=== PATIENT | male | born 1950 | race Two or more races ===

== ENCOUNTER 2023-08-08 17:03 | Inpatient (IN) | payer OTHER ==
[2023-08-08] VITALS (9 sets, daily range): BP systolic 128–142; BP diastolic 76–83; PULSE 48–61; RESP 10–18; TEMP 97.4; O2SAT 95–98
[~2023-08-08] VITALS: Ht 177.8 cm; Wt 94.5 kg
[2023-08-08] MEDS: HEPARIN SODIUM (PORCINE) 5000 UNITS/ML 1ML VIAL IV ONE (17:30)
[2023-08-08] MEDS: HEPARIN SODIUM (PORCINE) 5000 UNITS/ML 1ML VIAL ONE (17:34)
[2023-08-08] MEDS: VERAPAMIL 2.5MG/ML INJ 2ML VIAL IV ONE (17:34)
[2023-08-08] MEDS: ANGIOMAX 250 MG VIAL IV ONE (17:34)
[2023-08-08] MEDS: SODIUM CHL 0.9% 50 ML ONE (17:35)
[2023-08-08] MEDS: LIDOCAINE 2%HCL (LOCAL ANESTH.) INJ 20ML MDV ONE (17:35)
[2023-08-08] MEDS: fentaNYL CITRATE 100 MCG/2 ML VL ONE (17:35)
[2023-08-08] MEDS: IODIXANOL 320MG/ML 100ML BTL IV ONE (17:35)
[2023-08-08] MEDS: MIDAZOLAM HCL 2MG/2ML 2ml VIAL (1mg/ml) ONE (17:35)
[2023-08-08] MEDS ORDERED: NITROGLYCERIN 0.4 MG SL TAB SL PRN ×2 (17:45→19:00)
[2023-08-08] MEDS ORDERED: MORPHINE SULFATE INJ 2 MG/ml SYRG IV PRN ×2 (17:45→19:00)
[2023-08-08] MEDS ORDERED: ONDANSETRON HCL 4 MG/2 ML VIAL IV PRN (17:45)
[2023-08-08] MEDS ORDERED: DOCUSATE SOD 100 MG CAP PO PRN (17:45)
[2023-08-08 17:59] LABS: Basophils # (auto) 0.1 10 ^3/uL (0-0.2); Basophils % (auto) 0.5 % (0.0-2.0); Eosinophils # (auto) 0.1 10 ^3/uL (0-0.8); Eosinophils % (auto) 1.3 % (0.0-7.0); Hematocrit 47.3 % (41.0-53.0); Hemoglobin 15.9 g/dL (13.5-17.5); Lymphocytes # (auto) 1.8 10 ^3/uL (0.4-5.4); Mean Corpuscular Hemoglobin 29.1 pg (28.0-32.0); Mean Corpuscular Hgb Conc. 33.6 g/dL (32.0-36.0); Mean Corpuscular Volume 86.4 fL (80.0-100.0); Monocytes # (auto) 0.8 10 ^3/uL (0-1.3); Monocytes % (auto) 7.2 % (0.0-12.0); Neutrophils # (auto) 8.3 10 ^3/uL (1.6-8.6); Nucleated Red Blood Cells % 0.2 %; Red Blood Cells 5.48 10^6/uL (4.5-5.90); White Blood Cell 11.1 10^3/uL (4.4-10.8)
[2023-08-08 18:15] LABS: Alanine Aminotransferase 58 U/L (7-40); Albumin 4.7 g/dL (3.2-4.8); Alkaline Phosphatase 100 U/L (46-116); Anion Gap 7 (5-15); Aspartate Aminotransferase 36 U/L (13-40); BUN/Creatinine Ratio 17.5 (10.0-20.0); Blood Urea Nitrogen 21 mg/dL (9-23); Calcium 9.8 mg/dL (8.5-10.1); Carbon Dioxide 22 mmol/L (20-30); Chloride 111 mmol/L (98-107); Cholesterol 177 mg/dL (< 200); Glucose 111 mg/dL (74-106); LDL Cholesterol 123 mg/dL (< 100); Magnesium 1.9 mg/dL (1.6-2.6); Potassium 4.5 mmol/L (3.5-5.1); Sodium 140 mmol/L (136-145); Triglycerides 206 mg/dL (< 150)
[2023-08-08 18:16] LABS: Bilirubin, Total 0.4 mg/dL (0.2-1.0); HDL Cholesterol 40 mg/dL (40-59); Total Protein 6.9 g/dL (5.7-8.2)
[2023-08-08 18:33] LABS: INR 1.01 (0.9-1.15); Partial Thromboplastin Time 26.9 SEC (24.5-34.5); Prothrombin Time 10.7 sec (9.3-11.8)
[2023-08-08] MEDS ORDERED: ZOLPIDEM TARTRATE 5 MG TAB PO PRN (19:00)
[2023-08-08] MEDS ORDERED: ACETAMINOPHEN 500 MG TAB PO PRN (19:00)
[2023-08-08] MEDS: ATORVASTATIN 20 MG TAB PO SCH (21:16)
[2023-08-08] MEDS: SODIUM CHLOR 0.9% PF (SALINE LOCK) 10ML VIAL/SYR IV SCH (21:17)
[2023-08-08] MEDS ORDERED: METO25TA93 PO (21:32)
[2023-08-08] MEDS ORDERED: ATOR40TA52 PO (21:32)
[2023-08-08] MEDS ORDERED: AMLO1TAB22 PO (21:32)
[2023-08-08] MEDS ORDERED: CLOP75TA70 PO (21:32)
[2023-08-08] MEDS ORDERED: ASPI-325 PO (21:32)
[2023-08-09 01:00] VITALS: BP 113/72; PULSE 59; RESP 18; TEMP 97.6; O2SAT 96
[2023-08-09 05:00] VITALS: BP 141/78; PULSE 51; RESP 18; TEMP 98.1; O2SAT 97
[2023-08-09 06:49] LABS: Basophils # (auto) 0.1 10 ^3/uL (0-0.2); Basophils % (auto) 0.9 % (0.0-2.0); Eosinophils # (auto) 0.3 10 ^3/uL (0-0.8); Eosinophils % (auto) 3.9 % (0.0-7.0); Hemoglobin 15.2 g/dL (13.5-17.5); Lymphocytes # (auto) 2.3 10 ^3/uL (0.4-5.4); Lymphocytes % (auto) 27.9 % (10.0-50.0); Mean Corpuscular Hemoglobin 29.4 pg (28.0-32.0); Mean Corpuscular Hgb Conc. 33.8 g/dL (32.0-36.0); Mean Corpuscular Volume 86.9 fL (80.0-100.0); Monocytes # (auto) 0.7 10 ^3/uL (0-1.3); Monocytes % (auto) 8.7 % (0.0-12.0); Neutrophils # (auto) 4.8 10 ^3/uL (1.6-8.6); Neutrophils % (auto) 58.6 % (37.0-80.0); Nucleated Red Blood Cells % 0.1 %; Red Blood Cells 5.19 10^6/uL (4.5-5.90); White Blood Cell 8.2 10^3/uL (4.4-10.8)
[2023-08-09 07:14] LABS: Alanine Aminotransferase 53 U/L (7-40); Albumin 4.1 g/dL (3.2-4.8); Alkaline Phosphatase 79 U/L (46-116); Anion Gap 8 (5-15); Aspartate Aminotransferase 58 U/L (13-40); BUN/Creatinine Ratio 17.5 (10.0-20.0); Bilirubin, Total 0.6 mg/dL (0.2-1.0); Blood Urea Nitrogen 18 mg/dL (9-23); Calcium 9.2 mg/dL (8.7-10.4); Carbon Dioxide 22 mmol/L (20-30); Chloride 111 mmol/L (98-107); Glucose 97 mg/dL (74-106); Potassium 4.2 mmol/L (3.5-5.1); Sodium 141 mmol/L (136-145); Total Protein 6.2 g/dL (5.7-8.2)
[2023-08-09 08:00] VITALS: PULSE 49
[2023-08-09 08:55] VITALS: BP 122/71; PULSE 55; RESP 18; TEMP 98.2; O2SAT 96
[2023-08-09] MEDS: PANTOPRAZOLE 40 MG/10 ML VIAL INJ IV SCH (09:25)
[2023-08-09] MEDS: METOPROLOL SUCCINATE XL 50 MG TAB PO SCH (09:28)
[2023-08-09] MEDS: CLOPIDOGREL BISULFATE 75 MG TAB PO SCH (09:29)
[2023-08-09] MEDS: ASPirin-EC 81 mg tab PO SCH (09:30)
[2023-08-09 13:00] VITALS: BP 107/61; PULSE 52; RESP 19; TEMP 98; O2SAT 97
[2023-08-09 17:00] VITALS: BP 114/70; PULSE 52; RESP 17; TEMP 97.9; O2SAT 96
== END 2023-08-09 18:30 | disposition home or self-care (01) | DRG 282 ==
LOC: ER 17:03 → EDBD 17:03 → TELE 17:37 → ER 17:37 → TELE-WESTW 19:55
PROVIDERS: ADMIT Nurse Practitioner Family; ATTEND Internal Medicine
PROC: 4A023N7 Measurement of Cardiac Sampling and Pressure, Left Heart, Percutaneous Approach (ICD-10-PCS; principal; 2023-08-08)
PROC: B211YZZ Fluoroscopy of Multiple Coronary Arteries using Other Contrast (ICD-10-PCS; 2023-08-08)
PROC: B215YZZ Fluoroscopy of Left Heart using Other Contrast (ICD-10-PCS; 2023-08-08)
DX: I21.4 Non-ST elevation (NSTEMI) myocardial infarction (principal); I10 Essential (primary) hypertension; E78.5 Hyperlipidemia, unspecified; I25.10 Atherosclerotic heart disease of native coronary artery without angina pectoris; I25.2 Old myocardial infarction; Z98.61 Coronary angioplasty status; Z82.0 Family history of epilepsy and other diseases of the nervous system; Z82.49 Family history of ischemic heart disease and other diseases of the circulatory system
CPT/HCPCS: 36415; 71045; 80053; 80061; 83605; 83735; 83880; 84484; 85025; 85610; 85730; 87040; 93005; 93458; 99152; C9113; G0378; J2250; Q9967